=== PATIENT | female | born 1960 | race Hispanic/Latino ===

== ENCOUNTER 2019-09-08 11:03 | Emergency (ER) | payer SELFPAY ==
[2019-09-08 11:40] VITALS: BP 144/72
--- NOTE | 2019-09-08 11:43 | Event Note ---
ED Screening Note Date of service: 09/08/19 Time: 11:36 ED Screening Note: This initial assessment/diagnostic orders/clinical plan/treatment(s) is/are subject to change based on patients health status, clinical progression and re- assessment by fellow clinical providers in the ED. Further treatment and workup at subsequent clinical providers discretion. Patient/guardian urged not to elope from the ED as their condition may be serious if not clinically assessed and managed. Initial orders include: 59YO F states that she has a a dry cough x 1 week with SOB.
[2019-09-08 12:02] LABS: Basophils # (Auto) 0.1 K/mm3 (0.0-0.1); Basophils % (Auto) 0.6 % (0.0-1.8); Eosinophils # (Auto) 0.1 K/mm3 (0.0-0.4); Eosinophils % (Auto) 0.9 % (0.0-4.3); Hematocrit 41.3 % (30.3-42.9); Hemoglobin 13.7 gm/dl (10.1-14.3); Lymphocytes # (Auto) 2.4 K/mm3 (1.2-5.4); Lymphocytes % (Auto) 29.5 % (13.4-35.0); Mean Corpuscular HGB Conc 33 % (30-34); Mean Corpuscular Volume 82 fl (79-97); Monocytes # (Auto) 0.5 K/mm3 (0.0-0.8); Monocytes % (Auto) 5.7 % (0.0-7.3); Platelet Count 326 K/mm3 (140-440); Red Blood Count 5.07 M/mm3 (3.65-5.03); Red Cell Distribution Width 13.5 % (13.2-15.2)
[2019-09-08 12:24] LABS: Albumin 4.3 g/dL (3.9-5); Calcium 9.6 mg/dL (8.4-10.2)
--- NOTE | 2019-09-08 12:53 | XRay Report ---
CHEST 2 VIEWS INDICATION / CLINICAL INFORMATION: SOB. COMPARISON: None available. FINDINGS: SUPPORT DEVICES: None. HEART / MEDIASTINUM: No significant abnormality. LUNGS / PLEURA: No significant pulmonary or pleural abnormality. No pneumothorax. ADDITIONAL FINDINGS: No significant additional findings. IMPRESSION: 1. No acute findings. Signer Name: Venancio Baker MD Signed: 09/08/2019 12:49 PM Workstation Name: [id number]
[2019-09-08] MEDS ORDERED: IPRATROPIUM/ALBUTEROL SULFATE 3 ML AMPUL.NEB IH ONE (16:20)
[2019-09-08] MEDS ORDERED: predniSONE 50 MG TAB PO ONE (16:20)
--- NOTE | 2019-09-08 16:24 | Emergency Department Report ---
- General Chief Complaint: Upper Respiratory Infection Stated Complaint: DRY COUGH/DIZZY/LIGHTHEAD Time Seen by Provider: 09/08/19 11:33 Source: patient Mode of arrival: Ambulatory Limitations: No Limitations - History of Present Illness Initial Comments: 59-year-old female with a history of bipolar disorder and anxiety presents to the ER complaining of a productive cough which she has had for a little bit over 1 week. She reports associated runny nose and nasal congestion and intermittent wheezing and she states that last week Sunday she did have a low-grade fever but after taking [id number] medication she has been not had any fever since. She states she ears feels clogged and she has been feeling a little dizzy. She denies any obvious ill contacts. She denies any recent travel. She denies any chest pain, weakness, GI / symptoms or any other neuro symptoms. MD Complaint: cough, rhinorrhea, nasal congestion -: week(s) - Related Data Home Medications Medication Instructions Recorded Confirmed Last Taken PARoxetine [Paxil] PO DAILY 02/07/15 02/07/15 02/07/15 risperiDONE [RisperDAL] 0.5 mg PO QHS 02/07/15 02/07/15 02/06/15 Previous Rx's Medication Instructions Recorded Last Taken Type Meclizine [Antivert] 25 mg PO TID PRN #30 tablet 09/09/14 Unknown Rx Omeprazole [PriLOSEC] 20 mg PO QDAY #30 capsule. 09/09/14 Unknown Rx Potassium Chloride [K-Dur] 20 meq PO QDAY #60 tablet 02/08/15 Unknown Rx Acyclovir [Zovirax Tab] 800 mg PO Q4HWA #50 tab 09/10/15 Unknown Rx HYDROcodone/APAP 5-325 [[place] 1 each PO Q4HR PRN #20 tablet 09/10/15 Unknown Rx 5/325] predniSONE [Deltasone] 10 mg PO QDAY #42 tab 09/10/15 Unknown Rx Albuterol INH(or & Nicu Only) 2 puff IH QID PRN #8.5 gram 09/08/19 Unknown Rx [ProAir HFA Inhaler] Amoxicillin/Potassium Clav 1 each PO BID #14 tablet 09/08/19 Unknown Rx [Augmentin 875-125 Tablet] Benzonatate [Tessalon Perles] 100 mg PO Q8HR PRN #30 capsule 09/08/19 Unknown Rx predniSONE [Deltasone] 50 mg PO QDAY #4 tab 09/08/19 Unknown Rx Allergies Allergy/AdvReac Type Severity Reaction Status Date / Time codeine AdvReac Severe HIVES,LOTHA Verified 04/04/14 14:41 [facility] Sulfa (Sulfonamide AdvReac Severe HIVES,LOTHA Verified 04/04/14 14:41 Antibiotics) [facility] ED Review of Systems ROS: Stated complaint: DRY COUGH/DIZZY/LIGHTHEAD Other details as noted in HPI Constitutional: fever. denies: chills, diaphoresis, malaise, weakness ENT: denies: ear pain, throat pain, dental pain, hearing loss, epistaxis, congestion Respiratory: cough. denies: shortness of breath, SOB with exertion, SOB at rest, wheezing Cardiovascular: denies: chest pain Gastrointestinal: denies: nausea, vomiting, diarrhea, constipation Neurological: other (dizzy). denies: headache, weakness, numbness, paresthesias, confusion, abnormal gait Psychiatric: denies: anxiety, depression, auditory hallucinations, visual hallucinations, homicidal thoughts, suicidal thoughts ED Past Medical Hx - Past Medical History Previous Medical History?: Yes Hx GERD: Yes Hx Psychiatric Treatment: Yes (depression, anxiety) Hx Asthma: Yes Additional medical history: anemia, sleep apnea, hypokalemia - Surgical History Past Surgical History?: Yes Hx Cholecystectomy: Yes Additional Surgical History: tubal ligation - Social History Smoking Status: Never Smoker Substance Use Type: None - Medications Home Medications: Home Medications Medication Instructions Recorded Confirmed Last Taken Type Meclizine [Antivert] 25 mg PO TID PRN #30 tablet 09/09/14 02/07/15 Unknown Rx Omeprazole [PriLOSEC] 20 mg PO QDAY #30 capsule. 09/09/14 02/07/15 Unknown Rx PARoxetine [Paxil] PO DAILY 02/07/15 02/07/15 02/07/15 History risperiDONE [RisperDAL] 0.5 mg PO QHS 02/07/15 02/07/15 02/06/15 History Potassium Chloride [K-Dur] 20 meq PO QDAY #60 tablet 02/08/15 Unknown Rx Acyclovir [Zovirax Tab] 800 mg PO Q4HWA #50 tab 09/10/15 Unknown Rx HYDROcodone/APAP 5-325 [[place] 1 each PO Q4HR PRN #20 tablet 09/10/15 Unknown Rx 5/325] predniSONE [Deltasone] 10 mg PO QDAY #42 tab 09/10/15 Unknown Rx Albuterol INH(or & Nicu Only) 2 puff IH QID PRN #8.5 gram 09/08/19 Unknown Rx [ProAir HFA Inhaler] Amoxicillin/Potassium Clav 1 each PO BID #14 tablet 09/08/19 Unknown Rx [Augmentin 875-125 Tablet] Benzonatate [Tessalon Perles] 100 mg PO Q8HR PRN #30 capsule 09/08/19 Unknown Rx predniSONE [Deltasone] 50 mg PO QDAY #4 tab 09/08/19 Unknown Rx ED Physical Exam - General Limitations: No Limitations General appearance: alert, in no apparent distress - Head Head exam: Present: atraumatic, normocephalic, normal inspection - Eye Eye exam: Present: normal appearance, PERRL, EOMI Pupils: Present: normal accommodation - ENT ENT exam: Present: normal exam, normal orophraynx, mucous membranes moist - Expanded ENT Exam Expanded TM/Canal exam: Effusion: Right TM, Left TM (clear ) - Neck Neck exam: Present: normal inspection, full ROM. Absent: meningismus - Respiratory Respiratory exam: Present: normal lung sounds bilaterally, wheezes (mild exp left upper lobe). Absent: respiratory distress - Cardiovascular Cardiovascular Exam: Present: regular rate, normal rhythm, normal heart sounds - GI/Abdominal GI/Abdominal exam: Present: soft. Absent: distended, tenderness - Extremities Exam Extremities exam: Present: normal inspection - Neurological Exam Neurological exam: Present: alert, oriented X3, CN II-XII intact, normal gait. Absent: motor sensory deficit - Psychiatric Psychiatric exam: Present: normal affect, normal mood - Skin Skin exam: Present: intact ED Course Vital Signs 09/08/19 09/08/19 11:35 16:54 Temperature 99.0 F Pulse Rate 69 70 Respiratory 20 18 Rate Blood Pressure 144/72 O2 Sat by Pulse 94 100 Oximetry ED Medical Decision Making - Lab Data Result diagrams: 09/08/19 11:53 09/08/19 11:53 - Radiology Data Radiology results: report reviewed - Medical Decision Making Patient presented to ED c/o productive cough, intermittent wheezing, and URI symptoms. She reported low grade fever but that was sunday. She reports feeling better after neb tx. Patient well appearing, not toxic and appear hydrated. She is not in any respiratory distress. Repeat VS reviewed and nl. Labs and cxr unremarkable. Suspect Bronchitis. Discussed suspected dx and treatment plan with patient. Informed her if she is concerned for COVID she can f/u with PCP or health department for testing. She has already quarantined herself for 7 days, recommend another 7 days to monitor her symptoms. Recommend f/u with her PCP but if her symptoms worsens to return to ED. Critical care attestation.: If time is entered above; I have spent that time in minutes in the direct care of this critically ill patient, excluding procedure time. ED Disposition Clinical Impression: Bronchitis Disposition: - TO HOME OR SELFCARE Is pt being admited?: No Does the pt Need Aspirin: No Condition: Stable Instructions: Acute Bronchitis (ED) Additional Instructions: Recommend that you take medication as prescribed. Recommend rest and lots of fluids. Recommend following up with PCP and or Health department if you want COVID testing. Return to ED if your symptoms worsens and you develop fever (100.5 or higher). Prescriptions: Amoxicillin/Potassium Clav [Augmentin 875-125 Tablet] 1 each PO BID #14 tablet predniSONE [Deltasone] 50 mg PO QDAY #4 tab Albuterol INH(or & Nicu Only) [ProAir HFA Inhaler] 2 puff IH QID PRN #8.5 gram PRN Reason: Shortness Of Breath Benzonatate [Tessalon Perles] 100 mg PO Q8HR PRN #30 capsule PRN Reason: Cough Referrals: PRIMARY CARE,MD [Primary Care Provider] - 3-5 Days Forms: Work/School Release Form(ED) Time of Disposition: 17:14
== END 2019-09-08 17:35 | disposition home or self-care (01) ==
LOC: ED 11:03
DX: J40 Bronchitis, not specified as acute or chronic (principal); K21.9 Gastro-esophageal reflux disease without esophagitis; F32.9 Major depressive disorder, single episode, unspecified; D64.9 Anemia, unspecified; Z98.51 Tubal ligation status; Z90.49 Acquired absence of other specified parts of digestive tract; Z88.6 Allergy status to analgesic agent; Z88.2 Allergy status to sulfonamides; Z79.899 Other long term (current) drug therapy
CPT/HCPCS: 36415; 71046; 80053; 85025; 94640; 99284; J7512

== ENCOUNTER 2020-05-10 12:17 | Outpatient (CLI) | payer OTHER ==
--- NOTE | 2020-05-10 12:54 | XRay Report ---
CHEST 2 VIEWS INDICATION: ASTHMA,BRONCHITIS. COMPARISON: 09/08/2019 FINDINGS: Support devices: None. Heart: Within normal limits. Lungs/pleura: No acute air space or interstitial disease. No pneumothorax. Additional findings: None. IMPRESSION: No acute process or change since 09/08/2019 Signer Name: Hung Mclean Jr, MD Signed: 05/10/2020 12:50 PM Workstation Name: [id number]
--- NOTE | 2020-05-10 12:55 | XRay Report ---
LUMBOSACRAL SPINE 3 VIEWS INDICATION: BACK PAIN. COMPARISON: None. IMPRESSION: Normal alignment. Moderate degenerative disc disease and facet arthropathy are identifi ed at L4-5. Mild degenerative changes at L3-4 and L5-S1. The sacrum and SI joints are unremarkable. No acute osseous or soft tissue abnormality. Signer Name: Hung Mclean Jr, MD Signed: 05/10/2020 12:51 PM Workstation Name: [id number]
== END 2020-05-10 12:18 | disposition home or self-care (01) ==
LOC: XRAY 12:17
PROVIDERS: ATTEND Internal Medicine
DX: M47.897 Other spondylosis, lumbosacral region (principal); M47.816 Spondylosis without myelopathy or radiculopathy, lumbar region; M51.36 Other intervertebral disc degeneration, lumbar region; F41.9 Anxiety disorder, unspecified; J45.909 Unspecified asthma, uncomplicated
CPT/HCPCS: 71046; 72100

== ENCOUNTER 2021-01-13 13:57 | Emergency (ER) | payer OTHER ==
[2021-01-13 14:19] VITALS: BP 138/72
--- NOTE | 2021-01-13 16:16 | Emergency Department Report ---
- General Chief Complaint: Upper Respiratory Infection Stated Complaint: HEAD CONGESTION, GREAM PHLEM Time Seen by Provider: 01/13/21 16:04 Source: patient Mode of arrival: Ambulatory Limitations: No Limitations - History of Present Illness Initial Comments: 60-year-old female who reports a past medical history of anxiety/depression and sleep disorder presents to the ER today with complaints of sinus congestion.. Patient states that symptoms started about 5 days ago. She reports nasal congestion, with pressure in her sinuses, postnasal drainage, sore throat and ear pain. She reports intermittent cough and also chills. She denies any fever. She denies any chest pain or shortness of breath or generalized body aches. She states that she has been around her grandson who currently has a cold. She denies any known COVID-19 contacts. She states that she has not taken a Covid test since her symptoms started. She also has not gotten a COVID- 19 vaccine. MD Complaint: sore throat, nasal congestion, sinus pain, other (Ear pain) -: days(s) (5) - Related Data Home Medications Medication Instructions Recorded Confirmed Last Taken PARoxetine [Paxil] PO DAILY 02/07/15 02/07/15 02/07/15 risperiDONE [RisperDAL] 0.5 mg PO QHS 02/07/15 02/07/15 02/06/15 Previous Rx's Medication Instructions Recorded Last Taken Type Meclizine [Antivert] 25 mg PO TID PRN #30 tablet 09/09/14 Unknown Rx Omeprazole [PriLOSEC] 20 mg PO QDAY #30 capsule. 09/09/14 Unknown Rx Potassium Chloride [K-Dur] 20 meq PO QDAY #60 tablet 02/08/15 Unknown Rx Acyclovir [Zovirax Tab] 800 mg PO Q4HWA #50 tab 09/10/15 Unknown Rx HYDROcodone/APAP 5-325 [[place] 1 each PO Q4HR PRN #20 tablet 09/10/15 Unknown Rx 5/325] predniSONE [Deltasone] 10 mg PO QDAY #42 tab 09/10/15 Unknown Rx Albuterol Mdi (or & Nicu Only) 2 puff IH QID PRN #8.5 gram 09/08/19 Unknown Rx [ProAir HFA Inhaler] Benzonatate [Tessalon Perles] 100 mg PO Q8HR PRN #30 capsule 09/08/19 Unknown Rx predniSONE [Deltasone] 50 mg PO QDAY #4 tab 09/08/19 Unknown Rx Amoxicillin/Potassium Clav 1 each PO BID #14 tablet 01/13/21 Unknown Rx [Augmentin 875-125 Tablet] Fluticasone [Flonase] 2 spray NS QDAY #1 bottle 01/13/21 Unknown Rx Loratadine [Claritin] 10 mg PO DAILY #30 tablet 01/13/21 Unknown Rx Allergies Allergy/AdvReac Type Severity Reaction Status Date / Time codeine AdvReac Severe HIVES,LOTHA Verified 01/13/21 14:16 [facility] Sulfa (Sulfonamide AdvReac Severe HIVES,LOTHA Verified 01/13/21 14:16 Antibiotics) [facility] ED Review of Systems ROS: Stated complaint: HEAD CONGESTION, GREAM PHLEM Other details as noted in HPI Comment: All other systems reviewed and negative Constitutional: denies: chills, fever Eyes: denies: eye pain, eye discharge, vision change ENT: ear pain, throat pain, congestion Respiratory: cough. denies: shortness of breath, SOB with exertion, SOB at rest, wheezing Cardiovascular: denies: chest pain, palpitations, dyspnea on exertion, edema, syncope, paroxysmal nocturnal dyspnea Endocrine: no symptoms reported Gastrointestinal: denies: abdominal pain, nausea, vomiting, diarrhea, constipation, hematemesis, hematochezia Genitourinary: denies: urgency, dysuria, frequency, hematuria, discharge, abnormal menses, dyspareunia Musculoskeletal: denies: back pain, joint swelling, arthralgia Skin: denies: rash, lesions, change in color, change in hair/nails, pruritus Neurological: denies: headache, weakness, numbness, paresthesias, confusion, abnormal gait, vertigo Psychiatric: denies: anxiety, depression, auditory hallucinations, visual hallucinations, homicidal thoughts, suicidal thoughts Hematological/Lymphatic: denies: easy bleeding, easy bruising ED Past Medical Hx - Past Medical History Hx GERD: Yes Hx Psychiatric Treatment: Yes (depression, anxiety) Hx Asthma: Yes Additional medical history: anemia, sleep apnea, hypokalemia/ BRONCHITITS - Surgical History Hx Cholecystectomy: Yes Additional Surgical History: tubal ligation - Social History Smoking Status: Never Smoker Substance Use Type: None - Medications Home Medications: Home Medications Medication Instructions Recorded Confirmed Last Taken Type Meclizine [Antivert] 25 mg PO TID PRN #30 tablet 09/09/14 02/07/15 Unknown Rx Omeprazole [PriLOSEC] 20 mg PO QDAY #30 capsule. 09/09/14 02/07/15 Unknown Rx PARoxetine [Paxil] PO DAILY 02/07/15 02/07/15 02/07/15 History risperiDONE [RisperDAL] 0.5 mg PO QHS 02/07/15 02/07/15 02/06/15 History Potassium Chloride [K-Dur] 20 meq PO QDAY #60 tablet 02/08/15 Unknown Rx Acyclovir [Zovirax Tab] 800 mg PO Q4HWA #50 tab 09/10/15 Unknown Rx HYDROcodone/APAP 5-325 [[place] 1 each PO Q4HR PRN #20 tablet 09/10/15 Unknown Rx 5/325] predniSONE [Deltasone] 10 mg PO QDAY #42 tab 09/10/15 Unknown Rx Albuterol Mdi (or & Nicu Only) 2 puff IH QID PRN #8.5 gram 09/08/19 Unknown Rx [ProAir HFA Inhaler] Benzonatate [Tessalon Perles] 100 mg PO Q8HR PRN #30 capsule 09/08/19 Unknown Rx predniSONE [Deltasone] 50 mg PO QDAY #4 tab 09/08/19 Unknown Rx Amoxicillin/Potassium Clav 1 each PO BID #14 tablet 01/13/21 Unknown Rx [Augmentin 875-125 Tablet] Fluticasone [Flonase] 2 spray NS QDAY #1 bottle 01/13/21 Unknown Rx Loratadine [Claritin] 10 mg PO DAILY #30 tablet 01/13/21 Unknown Rx ED Physical Exam - General Limitations: No Limitations General appearance: alert, in no apparent distress - Head Head exam: Present: atraumatic, normocephalic, normal inspection - Eye Eye exam: Present: normal appearance, PERRL, EOMI Pupils: Present: normal accommodation - ENT ENT exam: Present: normal exam, mucous membranes moist, other (Positive maxillary and frontal sinus tenderness) - Expanded ENT Exam Expanded TM/Canal exam: Effusion: Right TM, Left TM Mouth exam: Present: normal external inspection Teeth exam: Present: normal inspection Throat exam: Positive: normal inspection - Neck Neck exam: Present: normal inspection, full ROM. Absent: meningismus - Respiratory Respiratory exam: Present: normal lung sounds bilaterally. Absent: respiratory distress, wheezes, rales, rhonchi - Cardiovascular Cardiovascular Exam: Present: regular rate, normal rhythm, normal heart sounds - GI/Abdominal GI/Abdominal exam: Present: soft. Absent: distended, tenderness, guarding, rebound, rigid - Neurological Exam Neurological exam: Present: alert, oriented X3, CN II-XII intact, normal gait - Psychiatric Psychiatric exam: Present: normal affect, normal mood - Skin Skin exam: Present: intact ED Course Vital Signs 01/13/21 14:18 Temperature 98.2 F Pulse Rate 70 Respiratory 20 Rate Blood Pressure 138/72 O2 Sat by Pulse 97 Oximetry Critical care attestation.: If time is entered above; I have spent that time in minutes in the direct care of this critically ill patient, excluding procedure time. ED Disposition Clinical Impression: Acute sinusitis Disposition: DC- TO HOME OR SELFCARE Is pt being admited?: No Does the pt Need Aspirin: No Condition: Stable Instructions: Sinusitis, Adult, [id number] Additional Instructions: Recommend that you take the Augmentin, Claritin and use the Flonase as prescribed. You can take Tylenol and/or ibuprofen from [id number]-fdyhnnt to help with any pain. Recommend close follow-up with your primary care doctor. Return to the ER if your symptoms changes or worsens in any way. Prescriptions: Amoxicillin/Potassium Clav [Augmentin 875-125 Tablet] 1 each PO BID #14 tablet Loratadine [Claritin] 10 mg PO DAILY #30 tablet Fluticasone [Flonase] 2 spray NS QDAY #1 bottle Referrals: PRIMARY CARE, [Primary Care Provider] - 3-5 Days Time of Disposition: 16:16
== END 2021-01-13 16:27 | disposition home or self-care (01) ==
LOC: ED 13:57
DX: J01.90 Acute sinusitis, unspecified (principal); K21.9 Gastro-esophageal reflux disease without esophagitis; F32.9 Major depressive disorder, single episode, unspecified; F41.9 Anxiety disorder, unspecified; Z90.49 Acquired absence of other specified parts of digestive tract; Z88.6 Allergy status to analgesic agent; Z79.899 Other long term (current) drug therapy; Z98.51 Tubal ligation status
CPT/HCPCS: 99282

== ENCOUNTER 2021-01-19 08:49 | Outpatient (CLI) | payer OTHER | END 2021-01-19 08:50 | disposition home or self-care (01) | LOC: PF 08:49 | PROVIDERS: ATTEND Internal Medicine | DX: J45.909 Unspecified asthma, uncomplicated (principal); J40 Bronchitis, not specified as acute or chronic | CPT/HCPCS: 94010 ==

== ENCOUNTER 2021-10-07 17:28 | Emergency (ER) | payer OTHER ==
--- NOTE | 2021-10-07 18:17 | XRay Report ---
Right ankle 3 views INDICATION: Right ankle pain following injury IMPRESSION: No discrete fracture is identified. There is moderate swelling overlying the lateral mall eolus. There is a small ankle effusion. Signer Name: Ronnie Smith MD Signed: 10/07/2021 6:13 PM Workstation Name: [id number]
--- NOTE | 2021-10-07 22:17 | Emergency Department Report ---
ED Lower Extremity HPI - General Chief Complaint: Extremity Injury, Lower Stated Complaint: RT ANKLE PAIN Time Seen by Provider: 10/07/21 21:32 Source: EMS Mode of arrival: Stretcher Limitations: No Limitations - History of Present Illness Initial Comments: 61-year-old female Al[place] emerged from complaining Pain after she excellently twisted earlier today around 415. States while she was standing she tried to turn around abruptly and her foot was caught planted in the ground causing her ankle to make a awkward twisting movement resulting in pain swelling and tenderness worse with palpation and range of motion. Still she is unable to bear weight due to the discomfort. Reports no numbness or tingling. No previous injuries. No pain to her knee MD Complaint: ankle injury -: Sudden, days(s) Injury: Knee: Right Type of Injury: inversion Severity: moderate Improves With: nothing Worsens With: nothing Context: walking Associated Symptoms: swelling, unable to bear weight - Related Data Home Medications Medication Instructions Recorded Confirmed Last Taken PARoxetine [Paxil] PO DAILY 02/07/15 02/07/15 02/07/15 risperiDONE [RisperDAL] 0.5 mg PO QHS 02/07/15 02/07/15 02/06/15 Previous Rx's Medication Instructions Recorded Last Taken Type Meclizine [Antivert] 25 mg PO TID PRN #30 tablet 09/09/14 Unknown Rx Omeprazole [PriLOSEC] 20 mg PO QDAY #30 capsule. 09/09/14 Unknown Rx Potassium Chloride [K-Dur] 20 meq PO QDAY #60 tablet 02/08/15 Unknown Rx Acyclovir [Zovirax Tab] 800 mg PO Q4HWA #50 tab 09/10/15 Unknown Rx HYDROcodone/APAP 5-325 [[place] 1 each PO Q4HR PRN #20 tablet 09/10/15 Unknown Rx 5/325] predniSONE [Deltasone] 10 mg PO QDAY #42 tab 09/10/15 Unknown Rx Albuterol Mdi (or & Nicu Only) 2 puff IH QID PRN #8.5 gram 09/08/19 Unknown Rx [ProAir HFA Inhaler] Benzonatate [Tessalon Perles] 100 mg PO Q8HR PRN #30 capsule 09/08/19 Unknown Rx predniSONE [Deltasone] 50 mg PO QDAY #4 tab 09/08/19 Unknown Rx Amoxicillin/Potassium Clav 1 each PO BID #14 tablet 01/13/21 Unknown Rx [Augmentin 875-125 Tablet] Fluticasone [Flonase] 2 spray NS QDAY #1 bottle 01/13/21 Unknown Rx Loratadine [Claritin] 10 mg PO DAILY #30 tablet 01/13/21 Unknown Rx Ketorolac [Toradol] 10 mg PO Q6H PRN #14 10/07/21 Unknown Rx Allergies Allergy/AdvReac Type Severity Reaction Status Date / Time codeine AdvReac Severe HIVES,LOTHA Verified 10/07/21 17:36 [facility] Sulfa (Sulfonamide AdvReac Severe HIVES,LOTHA Verified 10/07/21 17:36 Antibiotics) [facility] ED Review of Systems ROS: Stated complaint: RT ANKLE PAIN Other details as noted in HPI Comment: All other systems reviewed and negative ED Past Medical Hx - Past Medical History Hx GERD: Yes Hx Psychiatric Treatment: Yes (depression, anxiety) Hx Asthma: Yes Additional medical history: anemia, sleep apnea, hypokalemia/ BRONCHITITS - Surgical History Hx Cholecystectomy: Yes Additional Surgical History: tubal ligation - Social History Smoking Status: Never Smoker Substance Use Type: None - Medications Home Medications: Home Medications Medication Instructions Recorded Confirmed Last Taken Type Meclizine [Antivert] 25 mg PO TID PRN #30 tablet 09/09/14 02/07/15 Unknown Rx Omeprazole [PriLOSEC] 20 mg PO QDAY #30 capsule. 09/09/14 02/07/15 Unknown Rx PARoxetine [Paxil] PO DAILY 02/07/15 02/07/15 02/07/15 History risperiDONE [RisperDAL] 0.5 mg PO QHS 02/07/15 02/07/15 02/06/15 History Potassium Chloride [K-Dur] 20 meq PO QDAY #60 tablet 02/08/15 Unknown Rx Acyclovir [Zovirax Tab] 800 mg PO Q4HWA #50 tab 09/10/15 Unknown Rx HYDROcodone/APAP 5-325 [[place] 1 each PO Q4HR PRN #20 tablet 09/10/15 Unknown Rx 5/325] predniSONE [Deltasone] 10 mg PO QDAY #42 tab 09/10/15 Unknown Rx Albuterol Mdi (or & Nicu Only) 2 puff IH QID PRN #8.5 gram 09/08/19 Unknown Rx [ProAir HFA Inhaler] Benzonatate [Tessalon Perles] 100 mg PO Q8HR PRN #30 capsule 09/08/19 Unknown Rx predniSONE [Deltasone] 50 mg PO QDAY #4 tab 09/08/19 Unknown Rx Amoxicillin/Potassium Clav 1 each PO BID #14 tablet 01/13/21 Unknown Rx [Augmentin 875-125 Tablet] Fluticasone [Flonase] 2 spray NS QDAY #1 bottle 01/13/21 Unknown Rx Loratadine [Claritin] 10 mg PO DAILY #30 tablet 01/13/21 Unknown Rx Ketorolac [Toradol] 10 mg PO Q6H PRN #14 10/07/21 Unknown Rx ED Physical Exam - General Limitations: No Limitations General appearance: alert, in no apparent distress - Head Head exam: Present: atraumatic, normocephalic - Eye Eye exam: Present: normal appearance - ENT ENT exam: Present: mucous membranes moist - Neck Neck exam: Present: normal inspection - Respiratory Respiratory exam: Present: normal lung sounds bilaterally. Absent: respiratory distress - Cardiovascular Cardiovascular Exam: Present: regular rate, normal rhythm. Absent: systolic murmur, diastolic murmur, rubs, gallop - GI/Abdominal GI/Abdominal exam: Present: soft, normal bowel sounds - Extremities Exam Extremities exam: Present: normal inspection - Expanded Lower Extremity Exam Right Ankle exam: Present: tenderness, swelling. Absent: laceration, ecchymosis, dislocation, anterior draw sign Foot/Toe exam: Absent: abrasion, laceration Neuro vascular tendon exam: Present: no vascular compromise. Absent: abnormal cap refill, motor deficit Gait: Positive: unable to bear weight - Back Exam Back exam: Present: normal inspection. Absent: CVA tenderness (R), CVA tenderness (L) - Neurological Exam Neurological exam: Present: alert, oriented X3, CN II-XII intact, normal gait - Psychiatric Psychiatric exam: Present: normal affect, normal mood - Skin Skin exam: Present: warm, dry, intact, normal color. Absent: rash ED Course Vital Signs 10/07/21 17:35 Temperature 98.0 F Pulse Rate 86 Respiratory 18 Rate Blood Pressure 138/90 [Left] O2 Sat by Pulse 100 Oximetry ED Lower Extremity MDM - Radiology Data Radiology results: report reviewed [facility] [address] [place] [address] XRay Report Signed Patient: FRANCISCO MORGAN MR#: [id number] : 1960 Acct:[id number] Age/Sex: 61 / F ADM Date: 10/07/21 Loc: ED Attending Dr: Ordering Physician: KATI MARROQUIN MD Date of Service: 10/07/21 Procedure(s): XR ankle 3+V RT Accession Number(s): [id number] cc: ED MD CARA Fluoro Time In Minutes: Right ankle 3 views INDICATION: Right ankle pain following injury IMPRESSION: No discrete fracture is identified. There is moderate swelling overlying the lateral malleolus. There is a small ankle effusion. Signer Name: Ronnie Smith MD Signed: 10/07/2021 6:13 PM Workstation Name: [id number] Transcribed By: BC Dictated By: Ronnie Smith MD Electronically Authenticated By: Ronnie Smith MD Signed Date/Time: 10/07/211812 DD/ 09 Critical care attestation.: If time is entered above; I have spent that time in minutes in the direct care of this critically ill patient, excluding procedure time. ED Disposition Clinical Impression: Right ankle sprain Disposition: 01 HOME / SELF CARE / HOMELESS Is pt being admited?: No Does the pt Need Aspirin: No Condition: Stable Instructions: How to Use a Stirrup Ankle Brace, [id number], Ankle Sprain, Elastic Bandage and RICE Therapy, Ankle Sprain, Phase II Rehab-SportsMed, Ankle Sprain, Phase I Rehab-SportsMed, How to Use a Stirrup Ankle Brace Prescriptions: Ketorolac [Toradol] 10 mg PO Q6H PRN #14 PRN Reason: Pain Referrals: CUONG ARREDONDO MD [Primary Care Provider] - 3-5 Days
[2021-10-07 22:43] VITALS: BP 129/80
== END 2021-10-07 22:46 | disposition home or self-care (01) ==
LOC: ED 17:28
DX: S93.401A Sprain of unspecified ligament of right ankle, initial encounter (principal); Z88.2 Allergy status to sulfonamides; Z88.5 Allergy status to narcotic agent; J45.909 Unspecified asthma, uncomplicated; X58.XXXA Exposure to other specified factors, initial encounter; Y93.89 Activity, other specified; Y92.89 Other specified places as the place of occurrence of the external cause; Y99.8 Other external cause status
CPT/HCPCS: 99283